=== PATIENT | male | born 1980 | race African-American/Black ===

== ENCOUNTER 2017-02-18 00:51 | Emergency (ER) | payer SELFPAY ==
[~2017-02-18] VITALS: Ht 172.7 cm; Wt 68.0 kg
[2017-02-18] MEDS ORDERED: TETANUS, DIPHTHERIA, PERTUSSIS VAC/PF 0.5ML (>7YR OLD) IM ONE (03:15)
[2017-02-18] MEDS ORDERED: BACITRACIN ZINC OINT UDPKT TOP ONE ×2 (03:30→06:15)
[2017-02-18] MEDS ORDERED: LIDOCAINE HCL 1% 20ML VIAL (Pyxis) INJ MC ONE ×2 (03:30→06:15)
[2017-02-18] MEDS ORDERED: LORAZEPAM 2MG/ML CPJ IM ONE (04:00)
[2017-02-18] MEDS ORDERED: CEFTRIAXONE SODIUM 1 G/VIAL IM ONE (06:15)
[2017-02-18 06:50] VITALS: BP 124/77
== END 2017-02-18 06:50 | disposition home or self-care (01) ==
LOC: ER 00:51
DX: S51.811A Laceration without foreign body of right forearm, initial encounter (principal); F20.9 Schizophrenia, unspecified; F31.9 Bipolar disorder, unspecified; X78.0XXA Intentional self-harm by sharp glass, initial encounter; Y93.89 Activity, other specified; Y99.8 Other external cause status; Y92.098 Other place in other non-institutional residence as the place of occurrence of the external cause
CPT/HCPCS: 12002; 73090; 73130; 90471; 90715; 96372; 99284; J0696; J2060; J3490; Z7610